=== PATIENT | female | born 1960 | race Caucasian/White ===

== ENCOUNTER 2023-05-09 14:50 | Outpatient (CLI) | payer OTHER, SELFPAY ==
--- NOTE | 2023-05-09 15:05 | ECG_ITS ---
Measurements Intervals [place] Rate: 62 P: 66 [place]: 177 QRS: 11 QRSD: 98 T: 52 QT: 409 QTc: 418 Interpretive Statements SINUS RHYTHM NO PREVIOUS ECG AVAILABLE FOR COMPARISON Electronically Signed On 05-09-2023 15:52:51 [employer] SUPERVIS[employer] by Marilou Dutton M.D.
== END 2023-05-09 14:51 | disposition home or self-care (01) ==
LOC: ANHCARD 14:56
DX: Z01.818 Encounter for other preprocedural examination (principal)
CPT/HCPCS: 93005